=== PATIENT | male | born 1955 | race Caucasian/White ===

== ENCOUNTER → 2019-01-31 | Day surgery (SDC) | payer OTHER ==
[~2019-01-31] VITALS: Ht 180.3 cm; Wt 83.9 kg
[~2019-01-31] MED LIST: CIPROFLOXACIN 400MG/200ML 200 ML IV ONE; MEPERIDINE HCL (25 MG/ML) 1ML VIAL ONE; MIDAZOLAM HCL 1MG/1ML-2 ML VIAL ONE; PROPOFOL 10 MG/ML 20 ML IV ONE
[2019-01-31 11:05] VITALS: BP 126/71
== END | disposition home or self-care (01) ==
LOC: SUR 07:00
PROVIDERS: ATTEND Urology
DX: N42.32 Atypical small acinar proliferation of prostate (principal); E78.5 Hyperlipidemia, unspecified; M19.90 Unspecified osteoarthritis, unspecified site; I10 Essential (primary) hypertension; E11.42 Type 2 diabetes mellitus with diabetic polyneuropathy; Z79.4 Long term (current) use of insulin; Z79.82 Long term (current) use of aspirin; Z79.84 Long term (current) use of oral hypoglycemic drugs; Z79.899 Other long term (current) drug therapy; Z86.19 Personal history of other infectious and parasitic diseases; Z98.890 Other specified postprocedural states; Z88.6 Allergy status to analgesic agent
CPT/HCPCS: 52000; 55700; 76942; 82962; 88305; 88342; C1769; J0744; J2175; J2250; J2704; J7030

== ENCOUNTER → 2019-07-12 | Day surgery (SDC) | payer OTHER ==
[~2019-07-12] MED LIST changes: -CIPROFLOXACIN 400MG/200ML 200 ML IV ONE; -MEPERIDINE HCL (25 MG/ML) 1ML VIAL ONE; -MIDAZOLAM HCL 1MG/1ML-2 ML VIAL ONE; +MIDAZOLAM HCL 5 MG/ML-1ML VIAL ONE; -PROPOFOL 10 MG/ML 20 ML IV ONE; +SODIUM CHLORIDE LOCK 10 ML ONE; +diphenhdrAMINE HCL 50 MG/1 ML VL ONE; +fentaNYL CITRATE 100 MCG/2 ML VL ONE
[2019-07-12 07:57] LABS: Basophils # (auto) 0 uL; Basophils % (auto) 0.4 % (0.0-2.0); Eosinophils # (auto) 0.1 uL; Eosinophils % (auto) 1.3 % (0.0-7.0); Hematocrit 41.3 % (41.0-53.0); Hemoglobin 14.7 g/dL (13.5-17.5); Lymphocytes # (auto) 1.4 uL; Lymphocytes % (auto) 17.4 % (10.0-50.0); Mean Corpuscular Hemoglobin 30.3 pg (28.0-32.0); Mean Corpuscular Hgb Conc. 35.5 g/dL (32.0-36.0); Mean Corpuscular Volume 85.1 fL (80.0-100.0); Monocytes # (auto) 0.8 uL; Monocytes % (auto) 9.3 % (0.0-12.0); Neutrophils # (auto) 5.9 uL; Neutrophils % (auto) 71.6 % (37.0-80.0); Nucleated Red Blood Cells % 0.1 %; Platelet Count (auto) 193 10^3/uL (140-450); Red Blood Cells 4.85 10^6/uL (4.5-5.90); Red Cell Distribution Width 13.6 % (11.8-14.3); White Blood Cell 8.2 10^3/uL (4.4-10.8)
[2019-07-12 08:13] LABS: INR 1.13 (0.9-1.15); Partial Thromboplastin Time 27.1 sec (23.64-32.05)
[2019-07-12 10:40] VITALS: BP 141/65
== END | disposition home or self-care (01) ==
LOC: GI 06:05
PROVIDERS: ATTEND Internal Medicine Gastroenterology
DX: K63.5 Polyp of colon (principal); E11.9 Type 2 diabetes mellitus without complications; Z87.891 Personal history of nicotine dependence; Z79.4 Long term (current) use of insulin; Z79.84 Long term (current) use of oral hypoglycemic drugs; Z79.899 Other long term (current) drug therapy; Z98.890 Other specified postprocedural states
CPT/HCPCS: 36415; 45378; 85025; 85610; 85730; J1200; J2250; J3010; J7030; 99152

== ENCOUNTER → 2020-04-16 | Day surgery (SDC) | payer OTHER ==
[~2020-04-16] VITALS: Ht 182.9 cm; Wt 90.7 kg
[~2020-04-16] MED LIST changes: +ACCU-CHEK COMFORT CURVE STRIP VI ONE; +CIPROFLOXACIN 400MG/200ML 200 ML IV ONE; +ETOMIDATE (2MG/ML) 20ML VIAL IV ONE; +GLYCOPYRROLATE 0.2 MG/ML 1ML VIAL ONE; +HYDROmorphone HCL 2 MG/ML VL IV PRN; +LIDOCAINE 1% (LOCAL ANESTH.) PF 5ml SDV ONE; +LIDOCAINE 2% (LOCAL ANESTH.) PF 5ml SDV ONE; +MAGNESIUM SULFATE 100 ML IV ONE; +METOCLOPRAMIDE HCL 5MG/ml INJ 2ml VIAL ONE; +MIDAZOLAM HCL 1MG/1ML-2 ML VIAL ONE; -MIDAZOLAM HCL 5 MG/ML-1ML VIAL ONE; +NALOXONE HCL 0.4 MG/ML VIAL IV PRN; +NEOSTIGMINE 1 MG/ML INJ (10mg/10ML VIAL) ONE; +ONDANSETRON HCL 4 MG/2 ML VIAL IV PRN; +ROCURONIUM 10MG/ML 10ML VIAL IV ONE; -SODIUM CHLORIDE LOCK 10 ML ONE; +SUCCINYLCHOLINE CHLORIDE 20 MG/ML 10ML VIAL IV ONE; -diphenhdrAMINE HCL 50 MG/1 ML VL ONE; -fentaNYL CITRATE 100 MCG/2 ML VL ONE
[2020-04-16 13:16] LABS: Magnesium 2.1 mg/dL (1.6-2.6); Potassium 4.4 mmol/L (3.5-5.1)
[2020-04-16 14:40] VITALS: BP 127/64
== END | disposition home or self-care (01) ==
LOC: SUR 06:45
PROVIDERS: ATTEND Urology
DX: R97.20 Elevated prostate specific antigen [PSA] (principal); N40.1 Benign prostatic hyperplasia with lower urinary tract symptoms; R35.1 Nocturia; E11.9 Type 2 diabetes mellitus without complications; E78.00 Pure hypercholesterolemia, unspecified; Z86.19 Personal history of other infectious and parasitic diseases; Z79.4 Long term (current) use of insulin; Z79.899 Other long term (current) drug therapy; Z98.890 Other specified postprocedural states; Z20.828 Contact with and (suspected) exposure to other viral communicable diseases
CPT/HCPCS: 36415; 55700; 76872; 82962; 83735; 84132; 87426; 93005; C1769; J0330; J0744; J2001; J2250; J2765; J7030

== ENCOUNTER 2023-06-10 20:27 | Inpatient (IN) | payer OTHER ==
[~2023-06-10] VITALS: Ht 182.9 cm; Wt 95.0 kg
[2023-06-10] MEDS ORDERED: ACCU-CHEK COMFORT CURVE STRIP VI ONE (20:45)
[2023-06-10 21:15] VITALS: PULSE 61; RESP 24; O2SAT 92
[2023-06-10 21:19] LABS: Basophils # (auto) 0 10 ^3/uL (0-0.2); Basophils % (auto) 0.4 % (0.0-2.0); Eosinophils # (auto) 0.2 10 ^3/uL (0-0.8); Eosinophils % (auto) 1.8 % (0.0-7.0); Hematocrit 39.6 % (41.0-53.0); Hemoglobin 13.5 g/dL (13.5-17.5); Lymphocytes % (auto) 11.1 % (10.0-50.0); Mean Corpuscular Hemoglobin 29.4 pg (28.0-32.0); Mean Corpuscular Hgb Conc. 34.1 g/dL (32.0-36.0); Mean Corpuscular Volume 86.1 fL (80.0-100.0); Monocytes # (auto) 1.2 10 ^3/uL (0-1.3); Monocytes % (auto) 13.4 % (0.0-12.0); Neutrophils # (auto) 6.4 10 ^3/uL (1.6-8.6); Neutrophils % (auto) 73.3 % (37.0-80.0); Red Blood Cells 4.59 10^6/uL (4.5-5.90); Red Cell Distribution Width 13.8 % (11.8-14.3); White Blood Cell 8.8 10^3/uL (4.4-10.8)
[2023-06-10 21:28] LABS: Alanine Aminotransferase 15 U/L (7-40); Alkaline Phosphatase 76 U/L (46-116); Anion Gap 5 (5-15); Aspartate Aminotransferase 15 U/L (13-40); BUN/Creatinine Ratio 18.8 (10.0-20.0); Bilirubin, Total 0.6 mg/dL (0.2-1.0); Blood Urea Nitrogen 28 mg/dL (9-23); Calcium 7.9 mg/dL (8.7-10.4); Carbon Dioxide 27 mmol/L (20-30); Chloride 105 mmol/L (98-107); Glucose 239 mg/dL (74-106); Magnesium 1.8 mg/dL (1.6-2.6); Potassium 4.6 mmol/L (3.5-5.1); Sodium 137 mmol/L (136-145); Total Protein 5.7 g/dL (5.7-8.2)
[2023-06-10 21:35] LABS: INR 1.15 (0.9-1.15); Partial Thromboplastin Time 30.2 SEC (24.5-34.5)
[2023-06-10] MEDS ORDERED: ACETAMINOPHEN 500 MG TAB PO ONE (21:45)
[2023-06-10] MEDS ORDERED: METO25TA5 PO (21:53)
[2023-06-10] MEDS ORDERED: ATOR10TA52 PO (21:55)
[2023-06-10] MEDS ORDERED: LISI-275 PO (21:57)
[2023-06-10] MEDS ORDERED: TERA1CAP33 PO (22:10)
[2023-06-10] MEDS ORDERED: CARB200T4 PO (22:10)
[2023-06-10] MEDS ORDERED: FINA5TAB4 PO (22:17)
[2023-06-10] MEDS ORDERED: SODIUM CHLORIDE 0.9% 3,000 ML IV ONE (23:15)
[2023-06-10] MEDS ORDERED: HYDROmorphone HCL 2 MG/ML VL/or syr IV ONE (23:15)
[2023-06-10] MEDS ORDERED: ONDANSETRON HCL 4 MG/2 ML VIAL IV ONE (23:15)
[2023-06-10] MEDS ORDERED: cefTRIAXone 1GM/50ML D5W 50 ML IV ONE (23:30)
[2023-06-11] MEDS ORDERED: GLUCAGON EMERG KIT 1mg/1ml IV ONE (00:45)
[2023-06-11] MEDS ORDERED: CALCIUM CHL 100MG/ML 1,000 MG in D5W 5% 100 ML IV ONE (00:45)
[2023-06-11] MEDS ORDERED: ATROPINE SULF 1 MG/10ml SYR IV ONE (00:45)
[2023-06-11] MEDS ORDERED: CALCIUM CHLOR(10%) 100MG/ML 10ML SYRINGE IV ONE (00:50)
[2023-06-11] MEDS ORDERED: ATROPINE SULFATE 1 MG/1 ML VIAL ONE (01:01)
[2023-06-11 01:13] LABS: COVID19 ANTIGEN SOFIA FIA NEGATIVE (NEGATIVE)
[2023-06-11 01:38] LABS: Rapid Influenza A Negative (Negative); Rapid Influenza B Negative (Negative)
[2023-06-11 02:25] LABS: Urine Bacteria FEW /hpf (None Seen); Urine Blood Negative /uL (Negative); Urine Clarity Clear (Clear); Urine Color Yellow (Yellow); Urine Mucus FEW (None Seen); Urine Protein, UAD TRACE (Negative); Urine Specific Gravity 1.025 (1.001-1.035); Urine Urobilinogen Normal (Negative); Urine WBC 6 /hpf (0 - 3); Urine WBC Clumps PRESENT /hpf (None Seen); Urine pH 5.5 (5.0-8.0)
[2023-06-11] MEDS ORDERED: VANCOMYCIN PER PHARMACY 0 MG IV SCH (05:00)
[2023-06-11] MEDS ORDERED: ONDANSETRON HCL 4 MG/2 ML VIAL IV PRN (05:00)
[2023-06-11] MEDS ORDERED: VANCOMYCIN 1GM/250ML 250 ML IV ONE (06:00)
[2023-06-11 06:10] LABS: Amphetamine Screen, Urine Neg (NEGATIVE); Barbiturate Scree,Urine Neg (NEGATIVE); Benzodiazephine Screen, Urine Neg (NEGATIVE); Cannabinoid Screen, Urine Neg (NEGATIVE); Cocaine Screen, Urine Neg (NEGATIVE); Opiate Scree,Urine Neg (NEGATIVE); Phencyclidine Screen, Urine Neg (NEGATIVE)
[2023-06-11 07:46] VITALS: PULSE 50; RESP 11; O2SAT 98
[2023-06-11] MEDS ORDERED: ENOXAPARIN SOD 40 MG/0.4 ML SYRINGE SC ONE (10:00)
[2023-06-11] MEDS: PIPERACILLIN-TAZOB 3.375GM 100 ML IV SCH ×2 (14:16→23:32)
[2023-06-11] MEDS: ACETAMINOPHEN 325 MG TAB PO PRN ×2 (17:44→23:22)
[2023-06-11 18:28] VITALS: BP 125/52; PULSE 92; RESP 18; TEMP 103; O2SAT 95
[2023-06-11 19:00] VITALS: PULSE 51
[2023-06-11 20:00] VITALS: PULSE 51
[2023-06-11] MEDS ORDERED: VANCOMYCIN 1GM/250ML 250 ML IV SCH (20:00)
[2023-06-11 22:00] VITALS: BP 126/42; PULSE 49; RESP 19; TEMP 100.3; O2SAT 98
[2023-06-11] MEDS ORDERED: DEXTROSE (50%) 50ML SYRG IV PRN (22:15)
[2023-06-11] MEDS: VANCOMYCIN 1GM/250ML 250 ML IV SCH (23:23)
[2023-06-11] MEDS: ACCU-CHEK COMFORT CURVE STRIP VI SCH (23:35)
[2023-06-12] VITALS (7 sets, daily range): BP systolic 99–128; BP diastolic 40–68; PULSE 46–58; RESP 16–18; TEMP 98–99.2; O2SAT 93–99
[2023-06-12] MEDS: InsuLIN REG 1unit/0.01ml Soln (100units/ml) SC SCH ×4 (00:01→18:20)
[2023-06-12] MEDS: ACCU-CHEK COMFORT CURVE STRIP VI SCH ×3 (05:42→18:18)
[2023-06-12] MEDS: PIPERACILLIN-TAZOB 3.375GM 100 ML IV SCH ×3 (05:43→22:49)
[2023-06-12] MEDS: VANCOMYCIN 1GM/250ML 250 ML IV SCH (12:27)
[2023-06-13] VITALS (8 sets, daily range): BP systolic 93–132; BP diastolic 48–68; PULSE 53–71; RESP 18–20; TEMP 36.8; O2SAT 90–93
[2023-06-13] MEDS: InsuLIN REG 1unit/0.01ml Soln (100units/ml) SC SCH ×4 (00:54→18:00)
[2023-06-13] MEDS: ACCU-CHEK COMFORT CURVE STRIP VI SCH ×5 (00:55→23:29)
[2023-06-13] MEDS: VANCOMYCIN 1GM/250ML 250 ML IV SCH ×3 (03:00→23:29)
[2023-06-13] MEDS: PIPERACILLIN-TAZOB 3.375GM 100 ML IV SCH ×3 (05:50→22:20)
[2023-06-13 06:04] LABS: Basophils # (auto) 0 10 ^3/uL (0-0.2); Basophils % (auto) 0.6 % (0.0-2.0); Eosinophils # (auto) 0.3 10 ^3/uL (0-0.8); Eosinophils % (auto) 5.3 % (0.0-7.0); Hematocrit 35.9 % (41.0-53.0); Hemoglobin 12.7 g/dL (13.5-17.5); Lymphocytes # (auto) 0.7 10 ^3/uL (0.4-5.4); Lymphocytes % (auto) 11.8 % (10.0-50.0); Mean Corpuscular Hemoglobin 29.7 pg (28.0-32.0); Mean Corpuscular Hgb Conc. 35.3 g/dL (32.0-36.0); Mean Corpuscular Volume 84.2 fL (80.0-100.0); Monocytes # (auto) 0.9 10 ^3/uL (0-1.3); Monocytes % (auto) 14.1 % (0.0-12.0); Neutrophils # (auto) 4.3 10 ^3/uL (1.6-8.6); Neutrophils % (auto) 68.2 % (37.0-80.0); Nucleated Red Blood Cells % 0.1 %; Red Blood Cells 4.26 10^6/uL (4.5-5.90); Red Cell Distribution Width 13.5 % (11.8-14.3); White Blood Cell 6.3 10^3/uL (4.4-10.8)
[2023-06-13 06:12] LABS: Anion Gap 7 (5-15); Carbon Dioxide 27 mmol/L (20-30); Chloride 101 mmol/L (98-107); Potassium 4.1 mmol/L (3.5-5.1); Sodium 135 mmol/L (136-145)
[2023-06-13 06:13] LABS: Calcium 8.4 mg/dL (8.5-10.1)
[2023-06-13 06:18] LABS: Blood Urea Nitrogen 15 mg/dL (9-23); Glucose 265 mg/dL (74-106)
[2023-06-13] MEDS: ENOXAPARIN SOD 40 MG/0.4 ML SYRINGE SC SCH (10:40)
[2023-06-14] MEDS: InsuLIN REG 1unit/0.01ml Soln (100units/ml) SC SCH ×3 (00:13→12:00)
[2023-06-14] MEDS: ACETAMINOPHEN 325 MG TAB PO PRN (04:36)
[2023-06-14 05:05] VITALS: BP 120/56; PULSE 64; RESP 17; TEMP 101.1; O2SAT 91
[2023-06-14] MEDS: PIPERACILLIN-TAZOB 3.375GM 100 ML IV SCH ×3 (05:31→13:43)
[2023-06-14] MEDS: ACCU-CHEK COMFORT CURVE STRIP VI SCH ×2 (06:08→12:00)
[2023-06-14] MEDS ORDERED: INSULIN LANTUS (GLARGINE) 1 /0.01ml (100units/ml) SC SCH (07:00)
[2023-06-14 08:00] VITALS: BP 131/61; PULSE 50; RESP 18; TEMP 97.9
[2023-06-14 08:30] VITALS: BP 131/61; PULSE 50; RESP 18; TEMP 97.9; O2SAT 96
[2023-06-14] MEDS: VANCOMYCIN 1GM/250ML 250 ML IV SCH (10:37)
[2023-06-14] MEDS: ENOXAPARIN SOD 40 MG/0.4 ML SYRINGE SC SCH (10:37)
[2023-06-14 12:00] VITALS: BP 123/59; PULSE 57; RESP 18; TEMP 97.9; O2SAT 93
[2023-06-14 16:05] VITALS: BP 123/59; PULSE 57; RESP 18; TEMP 36.6; O2SAT 93
== END 2023-06-14 17:00 | disposition home or self-care (01) | DRG 312 ==
LOC: EEVIPCON 20:27 → EDBD 20:27 → ER 20:27 → TELE 06-11 05:01 → TELE-CENTR 06-11 18:06
PROVIDERS: ADMIT Internal Medicine; ATTEND Internal Medicine
DX: R55 Syncope and collapse (principal); R00.1 Bradycardia, unspecified; E11.9 Type 2 diabetes mellitus without complications; E78.00 Pure hypercholesterolemia, unspecified; I10 Essential (primary) hypertension; Z20.822 Contact with and (suspected) exposure to COVID-19; W18.39XA Other fall on same level, initial encounter; N40.0 Benign prostatic hyperplasia without lower urinary tract symptoms; Z63.4 Disappearance and death of family member; Z79.4 Long term (current) use of insulin; Z79.899 Other long term (current) drug therapy; Y93.89 Activity, other specified; Y92.89 Other specified places as the place of occurrence of the external cause; Y99.8 Other external cause status
CPT/HCPCS: 36415; 70450; 70551; 71045; 74176; 80048; 80053; 80202; 80307; 81001; 82565; 82962; 83605; 83735; 83880; 84484; 85025; 85610; 85730; 87040; 87086; 87426; 87804; 93005; 93306; 96361; 96374; G0378; J0461; J0696; J1815; J2405; J2543; J7060

== ENCOUNTER 2023-06-18 16:18 | Inpatient (IN) | payer OTHER ==
[~2023-06-18] VITALS: Ht 185.4 cm; Wt 95.2 kg
[~2023-06-18 16:18] MED LIST changes: -ACCU-CHEK COMFORT CURVE STRIP VI ONE; +ATOR10TA52 PO; +CARB200T4 PO; -CIPROFLOXACIN 400MG/200ML 200 ML IV ONE; -ETOMIDATE (2MG/ML) 20ML VIAL IV ONE; +FINA5TAB4 PO; -GLYCOPYRROLATE 0.2 MG/ML 1ML VIAL ONE; -HYDROmorphone HCL 2 MG/ML VL IV PRN; -LIDOCAINE 1% (LOCAL ANESTH.) PF 5ml SDV ONE; -LIDOCAINE 2% (LOCAL ANESTH.) PF 5ml SDV ONE; +LISI-275 PO; -MAGNESIUM SULFATE 100 ML IV ONE; -METOCLOPRAMIDE HCL 5MG/ml INJ 2ml VIAL ONE; -MIDAZOLAM HCL 1MG/1ML-2 ML VIAL ONE; -NALOXONE HCL 0.4 MG/ML VIAL IV PRN; -NEOSTIGMINE 1 MG/ML INJ (10mg/10ML VIAL) ONE; -ONDANSETRON HCL 4 MG/2 ML VIAL IV PRN; -ROCURONIUM 10MG/ML 10ML VIAL IV ONE; -SUCCINYLCHOLINE CHLORIDE 20 MG/ML 10ML VIAL IV ONE; +TERA1CAP33 PO
[2023-06-18 17:06] LABS: Basophils # (auto) 0 10 ^3/uL (0-0.2); Basophils % (auto) 0.5 % (0.0-2.0); Eosinophils # (auto) 0.8 10 ^3/uL (0-0.8); Hematocrit 38.9 % (41.0-53.0); Hemoglobin 13.4 g/dL (13.5-17.5); Lymphocytes # (auto) 0.9 10 ^3/uL (0.4-5.4); Lymphocytes % (auto) 9.9 % (10.0-50.0); Mean Corpuscular Hemoglobin 29.8 pg (28.0-32.0); Mean Corpuscular Hgb Conc. 34.4 g/dL (32.0-36.0); Mean Corpuscular Volume 86.7 fL (80.0-100.0); Monocytes % (auto) 11.1 % (0.0-12.0); Neutrophils # (auto) 6.3 10 ^3/uL (1.6-8.6); Neutrophils % (auto) 69.5 % (37.0-80.0); Red Blood Cells 4.49 10^6/uL (4.5-5.90); Red Cell Distribution Width 13.8 % (11.8-14.3); White Blood Cell 9.1 10^3/uL (4.4-10.8)
[2023-06-18 17:29] LABS: Alanine Aminotransferase 195 U/L (7-40); Albumin 4.4 g/dL (3.2-4.8); Alkaline Phosphatase 104 U/L (46-116); Anion Gap 5 (5-15); Aspartate Aminotransferase 152 U/L (13-40); BUN/Creatinine Ratio 11.3 (10.0-20.0); Bilirubin, Total 0.4 mg/dL (0.2-1.0); Blood Urea Nitrogen 14 mg/dL (9-23); Calcium 8.9 mg/dL (8.7-10.4); Carbon Dioxide 29 mmol/L (20-30); Chloride 97 mmol/L (98-107); Glucose 356 mg/dL (74-106); Sodium 131 mmol/L (136-145); Total Protein 7.1 g/dL (5.7-8.2)
[2023-06-18] MEDS ORDERED: MORPHINE SULFATE INJ 2 MG/ml SYRG IV PRN (18:45)
[2023-06-18] MEDS ORDERED: NITROGLYCERIN 0.4 MG SL TAB SL PRN (18:45)
[2023-06-18] MEDS ORDERED: DEXTROSE (50%) 50ML SYRG IV PRN (18:45)
[2023-06-18] MEDS ORDERED: ATORVASTATIN 20 MG TAB PO ONE (18:45)
[2023-06-18] MEDS ORDERED: APIXABAN 5 MG TAB PO SCH (22:00)
[2023-06-19] VITALS (7 sets, daily range): BP systolic 123–132; BP diastolic 50–60; PULSE 57–71; RESP 14–21; TEMP 98.3–99.5; O2SAT 91–97
[2023-06-19] MEDS: ACCU-CHEK COMFORT CURVE STRIP VI SCH ×5 (03:42→21:30)
[2023-06-19] MEDS: InsuLIN REG 1unit/0.01ml Soln (100units/ml) SC SCH ×5 (03:44→21:56)
[2023-06-19] MEDS: INSULIN LANTUS (GLARGINE) 1 /0.01ml (100units/ml) SC SCH ×2 (03:45→21:57)
[2023-06-19 11:22] LABS: Urine Bacteria NONE SEEN /hpf (None Seen); Urine Blood Negative /uL (Negative); Urine Clarity Clear (Clear); Urine Color Yellow (Yellow); Urine Protein, UAD TRACE (Negative); Urine Specific Gravity 1.019 (1.001-1.035); Urine Urobilinogen Normal (Negative); Urine WBC 1 /hpf (0 - 3)
[2023-06-20 05:00] VITALS: BP 107/49; PULSE 63; RESP 18; TEMP 98.5; O2SAT 92
[2023-06-20] MEDS: ACCU-CHEK COMFORT CURVE STRIP VI SCH ×2 (05:54→11:30)
[2023-06-20] MEDS: InsuLIN REG 1unit/0.01ml Soln (100units/ml) SC SCH ×2 (06:08→11:30)
[2023-06-20 08:35] VITALS: BP 107/54; PULSE 56; RESP 16; TEMP 98.4; O2SAT 93
[2023-06-20] MEDS ORDERED: ENOXAPARIN SOD 40 MG/0.4 ML SYRINGE SC SCH (10:00)
[2023-06-20 12:50] VITALS: BP 111/58; PULSE 55; RESP 16; TEMP 98.6; O2SAT 93
[2023-06-20 15:11] VITALS: BP 107/49; PULSE 63; RESP 18; TEMP 37; O2SAT 93
[2023-06-20 16:35] VITALS: BP 117/54; PULSE 71; RESP 16; TEMP 99.5; O2SAT 92
== END 2023-06-20 17:56 | DRG 71 ==
LOC: ER 16:18 → EEVIPCON 16:18 → TELE 18:52 → TELE-WESTW 06-19 11:39
PROVIDERS: ADMIT Internal Medicine; ATTEND Internal Medicine
DX: G93.41 Metabolic encephalopathy (principal); E87.1 Hypo-osmolality and hyponatremia; K75.9 Inflammatory liver disease, unspecified; E11.65 Type 2 diabetes mellitus with hyperglycemia; R53.1 Weakness; N40.0 Benign prostatic hyperplasia without lower urinary tract symptoms; E78.5 Hyperlipidemia, unspecified; I10 Essential (primary) hypertension; Z80.9 Family history of malignant neoplasm, unspecified
CPT/HCPCS: 36415; 70450; 70551; 80053; 81001; 82962; 85025; 87081; 93005; 93886; G0378; J1815

== ENCOUNTER 2024-07-11 06:03 | Inpatient (IN) | payer OTHER ==
[2024-07-11] VITALS (10 sets, daily range): BP systolic 132–142; BP diastolic 68–78; PULSE 49–77; RESP 11–20; TEMP 97.6–98.1; O2SAT 92–99
[~2024-07-11] VITALS: Ht 180.3 cm; Wt 97.1 kg
[~2024-07-11 06:03] MED LIST changes: -TERA1CAP33 PO; +TERA1CAP52 PO
[2024-07-11] MEDS: CIPROFLOXACIN 400MG/200ML 200 ML IV ONE (07:08)
[2024-07-11] MEDS ORDERED: ePHEDrine SULFATE 50 MG/ML AMP ONE (08:15)
[2024-07-11] MEDS ORDERED: diphenhdrAMINE HCL 50 MG/1 ML VL ONE (08:19)
[2024-07-11] MEDS ORDERED: fentaNYL CITRATE 100 MCG/2 ML VL ONE (08:20)
[2024-07-11] MEDS ORDERED: SUGAMMADEX 200mg/2ml Vial (100MG/ML) IV ONE (08:23)
[2024-07-11] MEDS ORDERED: DexAMETHasone SOD PHOS 10MG/1ML VIAL INJ ONE (08:23)
[2024-07-11] MEDS ORDERED: ONDANSETRON HCL 4 MG/2 ML VIAL ONE (08:23)
[2024-07-11] MEDS ORDERED: LIDOCAINE 2% (LOCAL ANESTH.) PF 5ml SDV ONE (08:23)
[2024-07-11] MEDS ORDERED: PROPOFOL 10 MG/ML 20 ML IV ONE (08:24)
[2024-07-11] MEDS ORDERED: GLYCOPYRROLATE 0.2 MG/ML 1ML VIAL ONE (08:24)
--- NOTE | 2024-07-11 08:37 | POSTOP ---
Post-Operative Note Post-Operative Note Preop Diagnosis Bladder neck contracture BPH Overflow urinary incontinence Postop Diagnosis: Same Operation performed Trans urethral resection and vaporization of bladder neck contracture and prostate Specimen Minimal Anesthesia: General Anesthesiologist: Luis Manuel Harris CRNA Surgeon Luís Cho Date 07/11/24 Time 08:30 LUÍS CHO MD Jul 11, 2024 08:37
[2024-07-11] MEDS ORDERED: oxyCODONE HCL 5MG TAB PO PRN (08:45)
[2024-07-11] MEDS ORDERED: hydrALAZINE HCL 20 MG/ML VL IV PRN (08:45)
[2024-07-11] MEDS ORDERED: ePHEDrine SULFATE 50 MG/ML AMP IV PRN (08:45)
[2024-07-11] MEDS ORDERED: FLUMAZENIL 0.1 MG/ML INJ 10ML MDV IV PRN (08:45)
[2024-07-11] MEDS ORDERED: MORPHINE SULFATE INJ 2 MG/ml SYRG IV PRN (08:45)
[2024-07-11] MEDS ORDERED: fentaNYL CITRATE 100 MCG/2 ML VL IV PRN (08:45)
[2024-07-11] MEDS ORDERED: ONDANSETRON HCL 4 MG/2 ML VIAL IV PRN (08:45)
[2024-07-11] MEDS ORDERED: NALOXONE HCL 0.4 MG/ML VIAL IV PRN (08:45)
[2024-07-11] MEDS ORDERED: NITROGLYCERIN 0.4 MG SL TAB SL PRN (08:45)
[2024-07-11] MEDS: HYDROmorphone HCL 2 MG/ML VL/or syr IV PRN (09:35)
[2024-07-11] MEDS ORDERED: METO25TA93 PO (12:29)
[2024-07-11] MEDS ORDERED: ATOR-507 PO (12:31)
--- NOTE | 2024-07-11 12:55 | DVHHP ---
ADMIT DATE: 07/11/2024 ATTENDING PHYSICIAN: Mil Horn MD CHIEF COMPLAINT: Status post TURP. HISTORY OF PRESENT ILLNESS: This is a 68-year-old male [facility] inmate who is immediate status post TURP #[address] Otoole. I was called by Dr. Otoole to admit the patient for further management, specifically CBI and [place] management. The patient at this time is comfortable. He states he does have a little bit of discomfort to the OP site area but he denies any headache, lightheadedness, chest pain, cough, shortness of breath, nor fever. PAST MEDICAL HISTORY: He has a history of hypertension, diabetes, hyperlipidemia, and BPH. PAST SURGICAL HISTORY: He has had previous TURP and has bilateral eye surgery as a child. FAMILY HISTORY: Brother had cancer type unknown. SOCIAL HISTORY: He has had greater than 40-pack years of smoking. He admits to occasional alcohol use. Denied any drug use. He is . He has one child. He normally resides in [place], been incarcerated for 29 years serving a life sentence, and he was previously employed as a registered nurse. REVIEW OF SYSTEMS: GENERAL: Denies any recent weight changes. HEENT: Denies any loss of consciousness, severe headache. CARDIOVASCULAR: Denies any chest pain, heart disease. RESPIRATORY: Denies cough, shortness of breath, hemoptysis. GASTROINTESTINAL: Denies any nausea, vomiting, diarrhea, constipation. GENITOURINARY: As per HPI. NEUROLOGICAL: Denies any focal deficits. PHYSICAL EXAMINATION: VITAL SIGNS: His temperature is 97.6 with a blood pressure 135/64, heart rate of 49, respiratory rate of 11, and O2 sat 97% on room air. HEENT: Normocephalic. Anicteric sclerae. [place] conjunctivae. EOMI. NECK: Supple. There is no JVD, mass, or bruit. CHEST: Good equal excursion bilateral, nontender. HEART: S1 and S2 regular. No click, murmur, or gallop. LUNGS: Good equal air exchange bilateral, clear to auscultation. ABDOMEN: Soft, nondistended, nontender. Bowel sounds positive. No mass, guarding, or rebound. NEUROLOGICAL: He is awake, alert, oriented x4 without focal deficits. LABORATORY DATA: We have glucose of 99, repeat was 121. ASSESSMENT: * Benign prostatic hypertrophy, status post transurethral resection of prostate. * Diabetes. * Hypertension. PLAN: Admit to med/surg. Condition stable. Regular diet. IV hep lock. We will order CBC and CMP and will also start the patient on oral antibiotics. We will also restart the patient's NPH and we will also call for urology consult with Dr. Otoole to manage CBI. MD EDUARDO Gatica/TERRENCE/KELLI TID: [id number] RECEIPT: [id number]
[2024-07-11] MEDS: CIPROFLOXACIN HCL 500 MG TAB PO ONE (14:10)
[2024-07-11] MEDS: HYDROcodone-ACET 10/325MG TAB PO PRN (14:11)
[2024-07-11 14:44] LABS: Hematocrit 45.9 % (41.0-53.0); Mean Corpuscular Hemoglobin 31.1 pg (28.0-32.0); Mean Corpuscular Hgb Conc. 34.7 g/dL (32.0-36.0); Mean Corpuscular Volume 89.4 fL (80.0-100.0); Platelet Count (auto) 156 10^3/uL (140-450); Red Blood Cells 5.14 10^6/uL (4.5-5.90); Red Cell Distribution Width 12.8 % (11.8-14.3); White Blood Cell 11.3 10^3/uL (4.4-10.8)
[2024-07-11 14:52] LABS: Band Neutrophils % (manual) 0; Basophils % (manual) 0 (0.0-2.0); Blast Cells 0; Eosinophils % (manual) 0 (0-7); Metamyelocytes % 0; Monocytes % (manual) 0 (0-12); Myelocytes % 0; Promyelocytes % 0; Reactive Lymphocytes 0
[2024-07-11 15:04] LABS: Alanine Aminotransferase 24 U/L (7-40); Albumin 4.2 g/dL (3.2-4.8); Anion Gap 6 (5-15); Aspartate Aminotransferase 24 U/L (13-40); BUN/Creatinine Ratio 13.6 (10.0-20.0); Bilirubin, Total 0.3 mg/dL (0.2-1.0); Blood Urea Nitrogen 20 mg/dL (9-23); Carbon Dioxide 27 mmol/L (20-31); Chloride 104 mmol/L (98-107); Sodium 137 mmol/L (136-145)
[2024-07-11 15:05] LABS: Alkaline Phosphatase 125 U/L (46-116); Total Protein 6.1 g/dL (5.7-8.2)
[2024-07-11 15:09] LABS: Glucose 458 mg/dL (74-106); Potassium 5.9 mmol/L (3.5-5.1)
[2024-07-11 16:48] LABS: Lymphocytes % (manual) 6 (10.0-50.0); Platelet Estimate Adequate
[2024-07-11] MEDS: SODIUM ZIRCONIUM CYCL 10 GM PAK PO ONE (17:00)
[2024-07-11] MEDS: INSULIN LANTUS (GLARGINE) 1 /0.01ml (100units/ml) SC ONE (17:05)
[2024-07-12] VITALS (7 sets, daily range): BP systolic 111–141; BP diastolic 54–69; PULSE 50–60; RESP 16–21; TEMP 97.7–98.6; O2SAT 91–96
[2024-07-12] MEDS: INSULIN LANTUS (GLARGINE) 1 /0.01ml (100units/ml) SC SCH (08:59)
[2024-07-12 09:43] LABS: Chloride 105 mmol/L (98-107); Potassium 4.3 mmol/L (3.5-5.1); Sodium 140 mmol/L (136-145)
[2024-07-12 09:44] LABS: Anion Gap 4 (5-15)
[2024-07-12 09:45] LABS: Calcium 9.1 mg/dL (8.7-10.4)
[2024-07-12 09:50] LABS: BUN/Creatinine Ratio 16.8 (10.0-20.0); Blood Urea Nitrogen 21 mg/dL (9-23); Carbon Dioxide 31 mmol/L (20-31); Glucose 232 mg/dL (74-106)
--- NOTE | 2024-07-12 15:46 | DVHPN ---
DATE: 07/12/2024 ATTENDING PHYSICIAN: Mil Horn MD SUBJECTIVE: The patient states he is feeling pain all over his body more so on the site of the procedure and pointing to his groin area. He has not had any lightheadedness, blurring of vision, chest pain, cough, shortness of breath, nor fever. The CBI shows faint hint of blood. No new complaints. No untoward events noted. OBJECTIVE: VITAL SIGNS: His temperature is 97.8 with a blood pressure 111/66, heart rate of 50, respiratory rate of 20, O2 sats 92% on room air. HEART: S1 and S2 regular. No click, murmur, or gallop. LUNGS: Good equal air exchange bilateral, clear to auscultation. ABDOMEN: Soft, nondistended, nontender. Bowel sounds positive. No mass, guarding, or rebound. NEUROLOGIC: He is awake, alert, oriented x4 without focal deficits. LABORATORY DATA: We have sodium of 140, potassium 4.3, BUN is 21, creatinine 1.25, glucose of 232, and finger stick is 265. ASSESSMENT: * Benign prostatic hypertrophy, status post transurethral resection of prostate. * Diabetes. * Hypertension. PLAN: We will continue with CBI as recommended by Dr. Otoole for the status post TURP. Continue with oral antibiotics again for the TURP. We will continue with the Lantus for the patient's history of diabetes and we will continue with [place] for pain. I have encouraged the patient to ambulate as much as possible. MD EDUARDO Gatica/TERRENCE TID: [id number] RECEIPT: [id number]
[2024-07-13 01:00] VITALS: BP 119/65; PULSE 53; RESP 14; TEMP 98.2; O2SAT 92
[2024-07-13 05:00] VITALS: BP 132/61; PULSE 53; RESP 16; TEMP 98.4; O2SAT 93
[2024-07-13 09:00] VITALS: BP 124/54; PULSE 55; RESP 16; TEMP 97.7; O2SAT 91
--- NOTE | 2024-07-13 12:47 | DVHPN ---
DATE: 07/13/2024 ATTENDING PHYSICIAN: Dr. Mil Horn SUBJECTIVE: The patient is sitting up in bed, watching TV. He is comfortable. He is in no active distress. He complains of some lower abdominal discomfort, mild, but he denies any nausea, vomiting, diarrhea, constipation. He denies any cough, shortness of breath nor fever. No untoward events have been noted. OBJECTIVE: VITAL SIGNS: His temperature is 97.7 with a blood pressure of 124/54, heart rate of 55, respiratory rate of 16, O2 sats 91% on room air. HEART: S1, S2 regular. No click, murmur or gallop. LUNGS: Good equal air exchange bilateral, clear to auscultation. ABDOMEN: Soft, nondistended, nontender. Bowel sounds are positive. There is no mass, guarding or rebound. NEUROLOGIC: He is awake, alert, oriented x4 without focal deficits. [place] catheter shows clear without any evidence of hematuria/blood. ASSESSMENT: * Benign prostatic hyperplasia, status post transurethral resection of the prostate. * Diabetes. * Hypertension. PLAN: As discussed with Urology consult, Dr. Otoole. I will discontinue the continuous bladder irrigation today. I have emphasized to the patient the need to ambulate and that he may shower p.r.n. and also will continue the oral antibiotics for the TURP. Continue with Lantus for diabetes and the [place] for pain. MD EDUARDO Gatica/SANDRA TID: [id number] RECEIPT: [id number]
[2024-07-13 13:00] VITALS: BP 132/55; PULSE 52; RESP 17; TEMP 98.1; O2SAT 95
[2024-07-13 16:49] VITALS: BP 130/69; PULSE 55; RESP 17; TEMP 98.6; O2SAT 92
[2024-07-13 20:43] VITALS: BP 123/61; PULSE 54; RESP 16; TEMP 98.4; O2SAT 93
[2024-07-14 01:00] VITALS: BP 135/66; PULSE 61; RESP 14; TEMP 98.4; O2SAT 94
[2024-07-14 05:00] VITALS: BP 116/73; PULSE 66; RESP 16; TEMP 98.1; O2SAT 96
[2024-07-14 07:30] VITALS: PULSE 60; O2SAT 92
[2024-07-14 08:59] VITALS: BP 118/62; PULSE 60; RESP 18; TEMP 97.9; O2SAT 92
--- NOTE | 2024-07-14 10:16 | DVHDS ---
DATE OF DISCHARGE: 07/14/2024 ATTENDING PHYSICIAN: Dr. Mil Horn. CHIEF COMPLAINT ON ADMISSION: Status post TURP. HISTORY OF PRESENT ILLNESS: A 68-year-old male, [employer] inmate, on day of admission had undergone TURP #2 with urologist, Dr. Otoole, who called me and asked to admit the patient for further management and that he will require CBI as well as [place] care. He was admitted for further management. ADMITTING DIAGNOSES: * Benign prostatic hyperplasia, status post TURP. * Diabetes. * Hypertension. HOSPITAL COURSE: The patient was admitted to Med/Surg in stable condition, started on regular diet. He was started on oral antibiotics with immediate TURP. Resumed on insulin and was continued on continuous bladder irrigation and [place] secondary to the TURP. By third hospital day, CBI was discontinued after it had been noted to be clear of any blood. He was observed overnight and [place] discontinued, after which the patient was able to urinate on his own. He has been tolerating regular diet and ambulating unassisted. He is now being discharged back to the care of the [facility] authorities in good and stable condition. DISCHARGE DIAGNOSES: Benign prostatic hyperplasia status post TURP, diabetes and hypertension. He is instructed to resume prehospitalization medications. Followup with health services unit within 1 week and also followup with Dr. Otoole as per his recommendation. MD EDUARDO Gatica/WILFREDO/KELLI TID: [id number] RECEIPT: [id number]
[2024-07-14 10:52] VITALS: BP 118/62; PULSE 60; RESP 18; TEMP 97.9; O2SAT 92
[2024-07-14 12:47] VITALS: BP 128/65; PULSE 53; RESP 16; TEMP 97.9; O2SAT 92
== END 2024-07-14 15:00 | DRG 718 ==
LOC: SUR 06:03 → OVERFLOW 08:37 → EEVIPCON 10:30 → WEST WING 10:40
PROVIDERS: ADMIT Internal Medicine; ATTEND Internal Medicine
PROC: 0TBC8ZZ Excision of Bladder Neck, Via Natural or Artificial Opening Endoscopic (ICD-10-PCS; principal; 2024-07-11 07:54)
DX: N40.0 Benign prostatic hyperplasia without lower urinary tract symptoms (principal); N32.0 Bladder-neck obstruction; E11.9 Type 2 diabetes mellitus without complications; I10 Essential (primary) hypertension; E78.5 Hyperlipidemia, unspecified; R32 Unspecified urinary incontinence; N35.919 Unspecified urethral stricture, male, unspecified site; Z80.9 Family history of malignant neoplasm, unspecified
CPT/HCPCS: 36415; 80048; 80053; 82962; 83880; 85007; 85027; G0378; J1100; J1815; J2003; J2405; J2704

== ENCOUNTER 2024-10-31 11:35 | Inpatient (IN) | payer OTHER ==
[~2024-10-31] VITALS: Ht 180.3 cm; Wt 96.5 kg
[~2024-10-31 11:35] MED LIST changes: +ATOR-507 PO; -ATOR10TA52 PO; +METO25TA93 PO
[2024-10-31] MEDS ORDERED: NITROGLYCERIN 0.4 MG SL TAB SL PRN (16:15)
[2024-10-31] MEDS ORDERED: MORPHINE SULFATE INJ 2 MG/ml SYRG IV PRN (16:15)
--- NOTE | 2024-10-31 17:02 | ECG ---
[facility] Test Date: 2024-10-31 Test Time: 17:00:59 Pat Name: JOHANA GARRIDO Department: Room: [facility]5T B Gender: M Restrooms Or Lounges Maid: : 1955 Requested By: JENNIFER HEALY Order Number: [id number] Reading MD: Frandy Ferreira Measurements Intervals [place] Rate: 48 P: 34 NV: 185 QRS: -35 QRSD: 155 T: -27 QT: 497 QTc: 445 Interpretive Statements Sinus bradycardia Left bundle branch block Electronically Signed On 11-01-2024 9:08:52 PDT by Frandy Ferreira Please click the below link to view image of tracing.
[2024-10-31 17:12] LABS: Basophils # (auto) 0 10 ^3/uL (0-0.2); Basophils % (auto) 0.5 % (0.0-2.0); Eosinophils # (auto) 0.1 10 ^3/uL (0-0.8); Eosinophils % (auto) 2.3 % (0.0-7.0); Hematocrit 46.7 % (41.0-53.0); Hemoglobin 16.1 g/dL (13.5-17.5); Lymphocytes # (auto) 1.2 10 ^3/uL (0.4-5.4); Mean Corpuscular Hemoglobin 30.1 pg (28.0-32.0); Mean Corpuscular Hgb Conc. 34.5 g/dL (32.0-36.0); Monocytes # (auto) 0.7 10 ^3/uL (0-1.3); Monocytes % (auto) 10.7 % (0.0-12.0); Neutrophils # (auto) 4.1 10 ^3/uL (1.6-8.6); Neutrophils % (auto) 66.5 % (37.0-80.0); Nucleated Red Blood Cells % 0.4 %; Platelet Count (auto) 146 10^3/uL (140-450); Red Blood Cells 5.36 10^6/uL (4.5-5.90); Red Cell Distribution Width 13.8 % (11.8-14.3); White Blood Cell 6.1 10^3/uL (4.4-10.8)
[2024-10-31 17:33] LABS: Anion Gap 7 (5-15); Calcium 9.7 mg/dL (8.7-10.4); Chloride 105 mmol/L (98-107); Sodium 143 mmol/L (136-145)
[2024-10-31 17:34] LABS: Carbon Dioxide 31 mmol/L (20-31); Glucose 203 mg/dL (74-106)
[2024-10-31 17:39] LABS: BUN/Creatinine Ratio 11.4 (10.0-20.0); Blood Urea Nitrogen 14 mg/dL (9-23)
--- NOTE | 2024-10-31 18:53 | DVHINCON2 ---
Date Seen: October 31, 2024 Referring Physician MD Kory Reason for Consultation Chest pain History of Present Illness This is a 69-year-old male patient who originally presents to the outpatient cardiology clinic for recurrent chest pain. The patient was seen in the Cardiology Clinic with and was subsequently admitted to this facility for further cardiac workup. The patient is currently incarcerated. The patient reports that he has been experiencing intermittent chest pain over the last few months. He describes it as unprovoked, intermittent, pressure-like in nature, left-sided and nonradiating. Associated symptoms include dizziness and palpitations. A twelve lead electrocardiogram was obtained at time of assessment and reveals sinus bradycardia with left bundle branch block (LBBB seen in previous electrocardiogram from 2022). Initial troponin level of 20ng/L. Patient denies any chest pain at time of assessment. Significant past medical history includes hypertension, dyslipidemia, history myocardial infarction, type 2 diabetes mellitus, peripheral neuropathy, benign prostatic hyperplasia, obesity and previous tobacco use. He denies any cardiac stent placement. Past Medical History Past medical history reviewed. No other significant than mentioned above. Past Surgical History Transurethral resection of the prostate Right knee arthroscopy Family History: BPH G8 FATHER Diabetes mellitus G8 MOTHER G8 FATHER Family History Family history reviewed. Social History Patient has a 10 pack-year history, quit smoking approximately 20 years ago Denies any illicit drug use Denies any alcohol use Allergies: Coded Allergies: NO KNOWN ALLERGIES (Unverified , 01/31/19) Home Meds Reported Medications Atorvastatin Calcium (Lipitor) 40 Mg Tab, 1 TAB PO HS, #30 TAB 5 Refills 07/11/24 Metoprolol Succinate (Metoprolol Succinate Er) 25 Mg Tab, 12.5 MG PO DAILY for 30 Days, MG 07/11/24 Finasteride (Finasteride) 5 Mg Tab, 5 MG PO DAILY, MG TAKE ONE TABLET (5 MG) BY MOUTH EACH DAY. 06/10/23 Carbamazepine (Carbamazepine) 200 Mg Tab, 200 MG PO HS, MG TAKE ONE TABLET (200 MG) BY MOUTH EACH EVENING. 06/10/23 Terazosin Hcl (Terazosin Hcl) 1 Mg Cap, 3 MG PO DAILY for 30 Days, MG TAKE 3 CAPSULES (3 MG) BY MOUTH EACH DAY. 06/10/23 Lisinopril (Lisinopril) 5 Mg Tab, 5 MG PO DAILY for 30 Days, MG TAKE ONE TABLET (5 MG ) BY MOUTH DAILY. 06/10/23 Home Meds Home medications reviewed. Current Medications Current Medications Medications (Trade) Dose Ordered Sig/Yanelis Route PRN Reason Start Time Stop Time Status Last Admin Nitroglycerin (Ntrostat Sublingual) 0.4 mg Q5MINP PRN SL FOR CHEST PAIN 10/31/24 16:15 Morphine Sulfate 2 mg Q30M PRN IV FOR CHEST PAIN 10/31/24 16:15 Aspirin 81 mg DAILY PO 10/31/24 22:00 Enoxaparin Sodium (Lovenox) 40 mg DAILY SC 10/31/24 22:00 UNV Review of Systems Constitutional: No symptom reported Ears, Nose, & Throat: No symptom reported Eyes: No symptom reported Neurological: No symptoms reported Pulmonary/Respiratory: No symptoms reported Cardiovascular: Chest pain, palpitations Gastrointestinal: No symptom reported Genitourinary: No symptom reported Musculoskeletal: No symptom reported Skin: No symptom reported Psychiatric: No symptom reported Endocrine: No symptom reported Hematologic/Lymphatic: No symptom reported Physical Exam General Appearance: Cooperative. Well-developed. Well-nourished. No acute dis tress. Pulmonary/Respiratory: Clear, bilateral breaths sounds. Cardiovascular/Chest: Regular rate and rhythm. Peripheral Pulses: 2+ Radial (R). 2+ Radial (L). 2+ Pedal (R). 2+ Pedal (L) Abdominal Exam: Normal bowel sounds. Ankle Exam: Negative ankle edema Lower extremities: Negative lower extremity edema Neuro/Mental Status: A/OX4, coherent. Thoughts/Psych: Normal thought pattern. Appropriate mood and affect. Appearance: No acute distress. Skin Exam: Normal inspection. Normal color. Warm and dry. Labs/Diagnostic Data Labs Test 10/31/24 18:04 10/31/24 16:44 Range/Units White Blood Count 6.1 4.4-10.8 10^3/uL Red Blood Count 5.36 4.5-5.90 10^6/uL Hemoglobin 16.1 13.5-17.5 g/dL Hematocrit 46.7 41.0-53.0 % Mean Corpuscular Volume 87.0 80.0-100.0 fL Mean Corpuscular Hemoglobin 30.1 28.0-32.0 pg Mean Corpuscular Hemoglobin Concent 34.5 32.0-36.0 g/dL Red Cell Distribution Width 13.8 11.8-14.3 % Platelet Count 146 140-450 10^3/uL Mean Platelet Volume 8.4 6.9-10.8 fL Neutrophils (%) (Auto) 66.5 37.0-80.0 % Lymphocytes (%) (Auto) 20.0 10.0-50.0 % Monocytes (%) (Auto) 10.7 0.0-12.0 % Eosinophils (%) (Auto) 2.3 0.0-7.0 % Basophils (%) (Auto) 0.5 0.0-2.0 % Neutrophils # (Auto) 4.1 1.6-8.6 10 ^3/uL Lymphocytes # (Auto) 1.2 0.4-5.4 10 ^3/uL Monocytes # (Auto) 0.7 0-1.3 10 ^3/uL Eosinophils # (Auto) 0.1 0-0.8 10 ^3/uL Basophils # (Auto) 0 0-0.2 10 ^3/uL Nucleated Red Blood Cells 0.4 % Sodium Level 143 136-145 mmol/L Potassium Level 5.0 3.5-5.1 mmol/L Chloride Level 105 98-107 mmol/L Carbon Dioxide Level 31 20-31 mmol/L Anion Gap 7 5-15 Blood Urea Nitrogen 14 9-23 mg/dL Creatinine 1.23 0.700-1.30 mg/dL Glomerular Filtration Rate Calc 63 >90 mL/min BUN/Creatinine Ratio 11.4 10.0-20.0 Serum Glucose 203 H 74-106 mg/dL Calcium Level 9.7 8.7-10.4 mg/dL Assessment Chest pain, rule out coronary ischemia Rule out structural heart disease Hypertension Dyslipidemia History myocardial infarction Type 2 diabetes mellitus Peripheral neuropathy History of tobacco use Obesity Plan/Recommendation We will continue with the following plan/recommendations (Dr. Ferreira): Case discussed with . We will proceed with obtaining a transthoracic echocardiogram to evaluate cardiac function. Given the patient's clinical presentation, comorbidities, and twelve lead electrocardiogram, we will offer the patient a nuclear stress test. Plan discussed with the patient full detail. Patient agreeable. We will schedule the patient at soonest availability on 11/01/2024. In the meantime, continue with blood pressure control, single antiplatelet therapy, and lipid-lowering agent. Close Cardiac monitoring and notify cardiology team for any ECG changes. Thank you for allowing us to care for this patient. Please call with any questions or concerns. Critical care time spent: 43 minutes This medical document was created using an electronic medical record system with voice recognition software and computerized dictation system. Although this document has been carefully reviewed, there might still be some phonetic and t ypographical errors. Occasional wrong-word or ``sound-alike substitutions may have occurred due to the inherent limitations of voice recognition software. These areas are purely typographical due to imperfections of the software programs and do not reflect any compromise in the patient's medical care. Please read the chart carefully and recognize, using context, where these rodriguez bstitutions have occurred. Plan discussed with: Patient NYHA Physical activity limitations: NA Date of Service: October 31, 2024 Billing Provider: KOKI GLYNN Cardiology Common Codes: 42943-ITBNSPG INP/OBS CARE (High) Cardiology Consultation Codes: 52902-EDPEJNTOS CONSULT <45MIN KOKI GLYNN October 31, 2024 18:53
--- NOTE | 2024-10-31 19:42 | DVH ---
CHEST RADIOGRAPH Indication: CHEST PAIN Technique: Single frontal view of the chest was obtained COMPARISON: XY CHEST PORTABLE on DOS: 06/10/23 FINDINGS: Lines and Tubes: None Lungs: Clear Pleura: No effusion. No pneumothorax. Cardiomediastinal contours: Unremarkable Bones: Unremarkable IMPRESSION: No abnormality demonstrated.
[2024-10-31 20:00] VITALS: PULSE 46; RESP 18
[2024-10-31] MEDS ORDERED: HYDROcodone-ACET 10/325MG TAB PO PRN (20:00)
[2024-10-31 21:00] VITALS: BP 117/68; PULSE 47; RESP 18; TEMP 98.1; O2SAT 93
[2024-10-31] MEDS: ENOXAPARIN SOD 40 MG/0.4 ML SYRINGE SC SCH (21:55)
[2024-10-31] MEDS: ATORVASTATIN 20 MG TAB PO SCH (21:55)
[2024-10-31] MEDS: ASPirin 81 mg TAB PO SCH (21:55)
[2024-11-01] VITALS (13 sets, daily range): BP systolic 104–137; BP diastolic 53–66; PULSE 44–54; RESP 12–20; TEMP 97.6–98.4; O2SAT 91–95
[2024-11-01 07:57] LABS: Magnesium 1.9 mg/dL (1.6-2.6)
[2024-11-01] MEDS ORDERED: REGADENOSON 0.4 MG/5 ML SYRG IV ONE (08:00)
[2024-11-01] MEDS: LISINOPRIL 20 MG TAB PO SCH (09:15)
--- NOTE | 2024-11-01 10:55 | DVHPN2 ---
Consult Progress Note Date Seen: November 01, 2024 Subjective Review of Systems: CVS:Normal, RESPIRATORY:Normal, NEURO:Normal Objective vital signs Vital Sign Date Time Temp Pulse Resp B/P (MAP) Pulse Ox O2 Delivery O2 Flow Rate FiO2 11/01/24 09:15 126/61 11/01/24 09:13 97.8 48 19 93 97.8 10/31/24 20:00 Room Air* 0 21 Total Intake and Output 10/31/24 10/31/24 11/01/24 15:00 23:00 07:00 Intake Total 0 ml 450 ml Output Total 1850 ml Balance 0 ml -1400 ml medications Current Medications Medications Dose Ordered Sig/Yanelis Route Start Time Stop Time Status Last Admin Dose Admin Nitroglycerin 0.4 mg Q5MINP PRN SL 10/31/24 16:15 Aspirin 81 mg DAILY PO 10/31/24 22:00 11/01/24 09:14 81 MG Enoxaparin Sodium 40 mg DAILY SC 10/31/24 22:00 11/01/24 09:15 40 MG Atorvastatin Calcium 20 mg HS PO 10/31/24 22:00 10/31/24 21:55 20 MG Lisinopril 20 mg DAILY PO 11/01/24 10:00 11/01/24 09:15 20 MG Acetaminophen/ Hydrocodone Bitart 1 tab Q4HP PRN PO 10/31/24 20:00 Examination: LUNGS:Normal, CVS:Normal, NEURO:Normal laboratory and microbiology Laboratory Tests 10/31/24 16:44 Test 10/31/24 16:44 Range/Units Serum Glucose 203 H 74-106 mg/dL Problem List/Assessment/Plan Problem List/Assessment/Plan Chest pain rule out coronary ischemia Rule out structural heart disease Left bundle branch block Asymptomatic bradycardia Hypertension Dyslipidemia History myocardial infarction Type 2 diabetes mellitus Peripheral neuropathy History of tobacco use Obesity Plan/Recommendation (Dr. Ferreira) Case discussed with . We will proceed with obtaining a transthoracic echocardiogram to evaluate cardiac function. Given the patient's clinical presentation, comorbidities, and twelve lead electrocardiogram, he is scheduled for a coronary angiogram with cardiac catheterization on 11/01/2024. All risks and benefits of the procedure were discussed in detail with the patient agreeing for intervention. In the meantime, continue with blood pressure control, single-antiplatelet therapy, and lipid-lowering agent. Close Cardiac monitoring and notify cardiology team for any ECG changes. Thank you for allowing us to care for this patient. Please call with any questions or concerns. This medical document was created using an electronic medical record system with voice recognition software and computerized dictation system. Although this document has been carefully reviewed, there might still be some phonetic and typographical errors. Occasional wrong-word or ``sound-alike substitutions may have occurred due to the inherent limitations of voice recognition software. These areas are purely typographical due to imperfections of the software programs and do not reflect any compromise in the patient's medical care. Please read the chart carefully and recognize, using context, where these substitutions have occurred. Plan discussed with: Patient, Other Date of Service: November 01, 2024 Billing Provider: MASSIEL TIDWELL Cardiology Common Codes: 87158-IOSFKFVXCB INP/OBS CARE(Mod) MASSIEL TIDWELL November 01, 2024 10:55
[2024-11-01 11:12] LABS: Basophils # (auto) 0 10 ^3/uL (0-0.2); Basophils % (auto) 0.7 % (0.0-2.0); Eosinophils # (auto) 0.1 10 ^3/uL (0-0.8); Eosinophils % (auto) 3.2 % (0.0-7.0); Hematocrit 44.6 % (41.0-53.0); Hemoglobin 15.6 g/dL (13.5-17.5); Lymphocytes # (auto) 1.1 10 ^3/uL (0.4-5.4); Mean Corpuscular Hemoglobin 30.4 pg (28.0-32.0); Mean Corpuscular Volume 86.9 fL (80.0-100.0); Monocytes # (auto) 0.6 10 ^3/uL (0-1.3); Monocytes % (auto) 13.4 % (0.0-12.0); Neutrophils # (auto) 2.7 10 ^3/uL (1.6-8.6); Neutrophils % (auto) 58.7 % (37.0-80.0); Nucleated Red Blood Cells % 0.6 %; Platelet Count (auto) 137 10^3/uL (140-450); Red Blood Cells 5.13 10^6/uL (4.5-5.90); Red Cell Distribution Width 13.1 % (11.8-14.3); White Blood Cell 4.7 10^3/uL (4.4-10.8)
[2024-11-01 11:18] LABS: Alanine Aminotransferase 22 U/L (7-40); Albumin 4.3 g/dL (3.2-4.8); Anion Gap 10 (5-15); Aspartate Aminotransferase 19 U/L (13-40); BUN/Creatinine Ratio 15.1 (10.0-20.0); Blood Urea Nitrogen 18 mg/dL (9-23); Calcium 9.3 mg/dL (8.7-10.4); Carbon Dioxide 26 mmol/L (20-31); Chloride 107 mmol/L (98-107); Potassium 4.4 mmol/L (3.5-5.1); Sodium 143 mmol/L (136-145); Total Protein 6.4 g/dL (5.7-8.2)
[2024-11-01 11:19] LABS: Alkaline Phosphatase 136 U/L (46-116); Bilirubin, Total 0.3 mg/dL (0.2-1.0); Glucose 270 mg/dL (74-106)
[2024-11-01 11:49] LABS: INR 1.08 (0.9-1.15); Partial Thromboplastin Time 30.3 SEC (24.5-34.5); Prothrombin Time 11.4 sec (9.3-11.8)
[2024-11-01] MEDS ORDERED: DEXTROSE (50%) 50ML SYRG IV PRN (12:15)
--- NOTE | 2024-11-01 13:03 | DVHSR ---
APPROVED REPORT EXAM: Two-dimensional and M-mode echocardiogram with Doppler and color Doppler. Blood Pressure: 137/62 mmHg INDICATION Eval cardiac function RISK FACTORS Height: 70, Weight: 214 DIMENSIONS LVDd5.1 (3.8-5.7cm)LA (2D)4.3 (1.9-4.0cm)Aortic Root3.8 (2.0-3.7cm) LVDs4.1 (2.5-4.0cm)LA (MM) (1.9-4.0cm)Aortic Cusp Exc1.2 (1.5-2.0cm) EF (%) 40.0 (55-70%)Rt. Atrium5.4 (1.9-4.0cm)Asc. Aorta cm IVSd1.3 (0.7-1.1cm)RV (D) (1.8-2.4cm) PWd1.3 (0.7-1.1cm) Mitral Valve MitralMitral Stenosis E wave0.49m/sMV Mean GR.mmHg A wave0.74m/sMV Peak GR.mmHg E/A ratio0.72D MVAcm2 DECEL [id number] 1/2 [id number] IVRTmsDop MVA2.01cm2 Aortic Valve Aortic ValveAortic Stenosis V10.78m/Ave Mean GR.3mmHg V21.15m/Ave Peak GR.5mmHg LVOT Diameter2.4 (1.8-2.4cm)Doppler AVA3.07cm2 Pulmonic Valve V21.00m/s Other Information Technically limited study due to body habitus. Conclusion lvef 45% by visual estimate mild LV dysfunction abnormal septal motion c/w LBBB normal rv function, RV enlarged mioderate mild biatria enlargemet no severe valve abnormalities noted
[2024-11-01] MEDS: IODIXANOL 320MG/ML 100ML BTL IV ONE ×2 (13:07→13:08)
[2024-11-01] MEDS: HEPARIN SODIUM (PORCINE) 5000 UNITS/ML 1ML VIAL ONE (13:45)
[2024-11-01] MEDS: LIDOCAINE 2%HCL (LOCAL ANESTH.) INJ 20ML MDV ONE (13:45)
--- NOTE | 2024-11-01 13:47 | DVHOP2 ---
Operative Report Operative Report CARDIAC [employer]ETING PROCEDURE REPORT [place], [place] Date of Service: 11/01/24 Community Service Officer Coordinator: William Acharya MD PROCEDURES PERFORMED: Coronary angiogram, left heart catheterization, conscious sedation administration and supervision, less than 15 minutes; fluoroscopy use and interpretation. PREOPERATIVE DIAGNOSES: ACS, LBBB, cardiomyopathy POSTOP DIAGNOSIS: mild LV dysfunction DESCRIPTION OF PROCEDURE: The patient or appropriate family signed informed consent understanding the risks, benefits and alternatives of the procedure, they wished to proceed. The patient was brought to the cardiac mechanical laboratory technician in n.p.o. state. The patient was prepped in a sterile fashion. Sedation was used per cardiac cath protocol. I administered 2 mL of 2% lidocaine to the right wrist. With an antegrade front wall puncture. I cannulated the right radial artery and placed a 6-[place] Glidesheath slender. Next, an intra-arterial spasmolytic was administered. Next, a - 6[place] catheter and guide and were used for coronary angiogram and LVEDP measurement and pressure pullback. At the completion of procedure, all guides and wires were removed, and there were no immediate complications. 4000 U of IV heparin given FINDINGS: RCA: Moderate vessel off the right sinus of Valsalva, there is no severe flow limiting stenosis. vert tortuous vessel. dominant vessel. mild slugish flow suggestive of microvascular disesae LEFT MAIN: Moderate size left main, it bifurcates into LAD and circumflex. no severe stenosis CIRCUMFLEX: Moderate caliber vessel coming off the left main with no flow limiting stenosis. LAD: LAD is a moderate caliber vessel coming of the left main. no severe stenosis. LVEDP of 13 mmhg CONCLUSIONS: 1. NO severe cad noted 2. NOrmal LVEDP PLAN: Aggressive risk factor modification and medical management for the patient. WILLIAM ACHARYA MD November 01, 2024 13:47
--- NOTE | 2024-11-01 14:24 | DVHPN ---
DATE: 11/01/2024 ATTENDING PHYSICIAN: Dr. Mil Horn SUBJECTIVE: The patient is sitting up in bed. He is comfortable. He is in no acute distress. He denies any chest pain at this moment. He said he did have a mild attack last night, which lasted a few minutes and resolved without intervention. No new complaints. No untoward events have been noted. OBJECTIVE: VITAL SIGNS: His temperature is 97.8 with a blood pressure of 126/61, heart rate of 48, respiratory rate of 19, and O2 saturation 93% on room air. HEART: S1, S2 regular. There is no click, murmur, or gallop. LUNGS: Good equal air exchange bilateral. Clear to auscultation. ABDOMEN: Soft, nondistended, nontender. Bowel sounds are positive. No mass, guarding, or rebound. NEUROLOGIC: He is awake, alert, and oriented x4 without focal deficits. LABORATORY DATA: Other labs are pending. Thyroid is normal and troponin is normal. ASSESSMENT: * Chest pain. * Diabetes. PLAN: We will start the patient on Lantus with Accu-Chek and moderate coverage sliding scale using regular insulin. We will continue with aspirin for cardio protection, atorvastatin for hyperlipidemia, Lovenox for DVT prophylaxis, lisinopril for hypertension, [place] for pain. MD EDUARDO Gatica/SANDRA TID: [id number] RECEIPT: [id number]
[2024-11-01] MEDS: fentaNYL CITRATE 100 MCG/2 ML VL ONE (14:57)
[2024-11-01] MEDS: MIDAZOLAM HCL 2MG/2ML 2ml VIAL (1mg/ml) ONE (14:57)
[2024-11-01] MEDS: ACCU-CHEK COMFORT CURVE STRIP VI SCH (17:00)
[2024-11-01] MEDS: InsuLIN REG 1unit/0.01ml Soln (100units/ml) SC SCH ×2 (17:48→22:12)
[2024-11-02] VITALS (7 sets, daily range): BP systolic 116–139; BP diastolic 50–73; PULSE 42–98; RESP 14–20; TEMP 97.7–99.7; O2SAT 91–95
[2024-11-02 08:00] LABS: Basophils # (auto) 0 10 ^3/uL (0-0.2); Basophils % (auto) 0.4 % (0.0-2.0); Eosinophils # (auto) 0.2 10 ^3/uL (0-0.8); Eosinophils % (auto) 3.3 % (0.0-7.0); Hematocrit 46.4 % (41.0-53.0); Hemoglobin 16.4 g/dL (13.5-17.5); Lymphocytes # (auto) 1.2 10 ^3/uL (0.4-5.4); Lymphocytes % (auto) 19.6 % (10.0-50.0); Mean Corpuscular Hemoglobin 30.6 pg (28.0-32.0); Mean Corpuscular Hgb Conc. 35.4 g/dL (32.0-36.0); Mean Corpuscular Volume 86.5 fL (80.0-100.0); Monocytes # (auto) 0.6 10 ^3/uL (0-1.3); Neutrophils # (auto) 4.1 10 ^3/uL (1.6-8.6); Neutrophils % (auto) 66.7 % (37.0-80.0); Nucleated Red Blood Cells % 0.1 %; Platelet Count (auto) 153 10^3/uL (140-450); Red Blood Cells 5.36 10^6/uL (4.5-5.90); Red Cell Distribution Width 13.2 % (11.8-14.3); White Blood Cell 6.2 10^3/uL (4.4-10.8)
[2024-11-02 08:05] LABS: Potassium 4.5 mmol/L (3.5-5.1); Sodium 143 mmol/L (136-145)
[2024-11-02 08:06] LABS: Anion Gap 9 (5-15); Carbon Dioxide 27 mmol/L (20-31)
[2024-11-02 08:07] LABS: Calcium 9.7 mg/dL (8.7-10.4)
[2024-11-02 08:12] LABS: BUN/Creatinine Ratio 19.8 (10.0-20.0); Blood Urea Nitrogen 23 mg/dL (9-23)
[2024-11-02 08:14] LABS: Chloride 107 mmol/L (98-107); Glucose 168 mg/dL (74-106)
[2024-11-02] MEDS: INSULIN LANTUS (GLARGINE) 1 /0.01ml (100units/ml) SC SCH (11:20)
[2024-11-02] MEDS ORDERED: INSLANTI SC (15:54)
[2024-11-02] MEDS ORDERED: ASPI-325 PO (15:54)
--- NOTE | 2024-11-02 17:27 | DVHHP ---
ADMIT DATE: 10/31/2024 This is a late entry for history and physical for the patient. Original H and P was dictated, but apparently was not picked up. ATTENDING PHYSICIAN: Mil Horn MD CHIEF COMPLAINT: Chest pain. HISTORY OF PRESENT ILLNESS: This is a 69-year-old male, [employer] inmate, who [facility], which is described as left side, pressure is sharp, 5-8/10 on scale with diaphoresis, but without loss of consciousness. Due to nature of symptoms, felt the patient should be admitted for further management. PAST MEDICAL HISTORY: He has diabetes, hypertension, hyperlipidemia, and BPH. PAST SURGICAL HISTORY: He has had TURP and bilateral eye surgery. FAMILY HISTORY: Brother had cancer, type unknown. SOCIAL HISTORY: He has 40 pack years of smoking. Occasional alcohol use. He denied any drug use. He is . He has one child, normally resides in [place]. He has been incarcerated for 29 years, serving a life sentence. He was previously employed as a registered nurse. REVIEW OF SYSTEMS: GENERAL: Denies any recent weight changes. HEENT: Denies any loss of consciousness or severe headache. CARDIOVASCULAR: As per HPI, but denies any chest pain at this moment and has not had any known heart disease. RESPIRATORY: He denies cough, shortness of breath, or hemoptysis. GI: Denies nausea, vomiting, diarrhea, or constipation. : Noncontributory. NEURO: Denies any focal deficits. PHYSICAL EXAMINATION: GENERAL: His temperature was 98.1, blood pressure was 117/68, heart rate of 46, respiratory rate of 18, O2 saturation 93% on room air. HEENT: Normocephalic and anicteric sclerae. [place] conjunctivae. EOMI. NECK: Supple. No JVD, mass or bruits. CHEST: Good equal excursion bilateral. Nontender. HEART: S1, S2 regular without click, murmur or gallop. LUNGS: Good equal air exchange bilaterally. Clear to auscultation. ABDOMEN: Soft, nondistended, nontender. Bowel sounds positive. No mass, guarding or rebound. NEURO: He is awake, alert, and oriented x4. He is without any focal deficits. LABORATORY DATA: We have WBC of 6.1 with a hemoglobin of 16.1 and a platelet of 145. His sodium was 143, potassium of 5, BUN 14, creatinine 1.23, glucose of 203. Liver enzymes were unremarkable. PT and PTT are normal. Chest x-ray, no acute findings. ASSESSMENT: Chest pain, rule out PR, hypertension, diabetes. PLAN: Admit to Tele. Condition is stable. Regular diet. IV Heplock. Serial troponin. Lovenox, DVT prophylaxis. for pain. Lantus for diabetes. Lisinopril for hypertension. Cardiology consult. MD EDUARDO Gatica/ALEKSANDR/KELLI TID: [id number] RECEIPT: [id number]
== END 2024-11-02 19:20 | DRG 287 ==
LOC: OVERFLOW 11:35 → UNDOADMIN 11:35 → EEVIPCON 15:58 → TELE-WESTW 15:58
PROVIDERS: ADMIT Internal Medicine; ATTEND Internal Medicine
PROC: 4A023N7 Measurement of Cardiac Sampling and Pressure, Left Heart, Percutaneous Approach (ICD-10-PCS; principal; 2024-11-01)
PROC: B211YZZ Fluoroscopy of Multiple Coronary Arteries using Other Contrast (ICD-10-PCS; 2024-11-01)
DX: I25.9 Chronic ischemic heart disease, unspecified (principal); E66.9 Obesity, unspecified; E78.5 Hyperlipidemia, unspecified; I10 Essential (primary) hypertension; N40.0 Benign prostatic hyperplasia without lower urinary tract symptoms; I44.7 Left bundle-branch block, unspecified; I42.9 Cardiomyopathy, unspecified; R00.1 Bradycardia, unspecified; E11.40 Type 2 diabetes mellitus with diabetic neuropathy, unspecified; Z68.29 Body mass index [BMI] 29.0-29.9, adult; Z80.9 Family history of malignant neoplasm, unspecified; Z83.3 Family history of diabetes mellitus; Z79.899 Other long term (current) drug therapy; I25.2 Old myocardial infarction; Z87.891 Personal history of nicotine dependence
CPT/HCPCS: 36415; 71045; 80048; 80053; 80061; 82962; 83036; 83735; 84443; 84484; 85025; 85610; 85730; 87081; 93005; 93306; 93458; 99152; G0378; J1815; J2250; Q9967